=== PATIENT | female | born 2000 | race Caucasian/White ===

== ENCOUNTER 2023-05-07 01:04 | Emergency (ER) | payer OTHER ==
[~2023-05-07] VITALS: Ht 157.5 cm; Wt 59.0 kg
[~2023-05-07 01:04] MED LIST: ALBU90OI INH; AMOX50SU; CEPH250SUA PO; HYDHCL25 PO; PROM6.25SY PO
[2023-05-07] MEDS ORDERED: SERT50 PO (02:12)
[2023-05-07] MEDS ORDERED: TRAZ50 PO (02:12)
[2023-05-07] MEDS ORDERED: MELO7.5 PO (02:14)
[2023-05-07] MEDS ORDERED: CLON.5 PO (02:14)
[2023-05-07] MEDS ORDERED: PRAZ1 PO (02:15)
[2023-05-07] MEDS ORDERED: AMPDEX5 PO (02:16)
[2023-05-07 02:17] LABS: BASOPHILS ABSOLUTE AUTO 0.06 K/mm3 (0.00-0.23); BASOPHILS PERCENT AUTO 1 % (0-2); EOSINOPHILS ABSOLUTE AUTO 0.03 K/mm3 (0.00-0.68); EOSINOPHILS PERCENT AUTO 0 % (0-6); Hematocrit 47.2 % (33.0-51.0); Hemoglobin 16.6 g/dL (11.5-16.0); IMMATURE GRAN ABSOLUTE AUTO 0.02 K/mm3 (0.00-0.10); IMMATURE GRAN PERCENT AUTO 0 % (0-1); LYMPHOCYTES ABSOLUTE AUTO 2.21 K/mm3 (0.84-5.20); LYMPHOCYTES PERCENT AUTO 23 % (21-46); MONOCYTES ABSOLUTE AUTO 0.36 K/mm3 (0.16-1.47); MONOCYTES PERCENT AUTO 4 % (4-13); Mean Corpuscular HGB 31.1 pg (26.0-34.0); Mean Corpuscular HGB Conc 35.2 g/dL (31.5-36.5); Mean Corpuscular Volume 88 fL (80-100); Mean Platelet Volume 8.5 fL (9.1-12.4); NEUTROPHILS ABSOLUTE AUTO 6.95 K/mm3 (1.96-9.15); NEUTROPHILS PERCENT AUTO 72 % (41-73); Platelet Count 394 K/mm3 (150-400); RDW Coefficient Variation 12.2 % (11.7-14.2); Red Blood Cell Count 5.34 M/mm3 (3.80-5.20); White Blood Cell Count 9.63 K/mm3 (4.00-11.30)
[2023-05-07 02:44] LABS: Ethanol (Alcohol), Blood, Med 169 mg/dL; Salicylate <1.7 mg/dL (2.8-20.0); Thyroid Stimulating Hormone 0.744 uIU/mL (0.360-4.800)
[2023-05-07 02:56] LABS: Acetaminophen, Random <2.0 ug/mL (10.0-30.0); Alanine Aminotransfer (ALT/SGP 14 U/L (12-78); Albumin, Blood 4.7 g/dL (3.4-5.0); Albumin/Globulin Ratio 1.2 (0.8-1.8); Alk Phos 83 U/L (50-136); Anion Gap 5 mmol/L (6-16); Aspartate Aminotrans (AST/SGOT 16 U/L (12-37); Bilirubin, Total 0.4 mg/dL (0.1-1.0); Blood Urea Nitrogen 7 mg/dL (8-24); Bun/Creatinine Ratio 9.8 (12.0-20.0); CO2, Blood 28 mmol/L (21-32); Calcium, Blood 9.1 mg/dL (8.5-10.1); Chloride, Blood 108 mmol/L (98-108); Creatinine, Blood 0.71 mg/dL (0.40-1.00); Glomerular Filtration Rate 122 (60-); Glucose, Blood 110 mg/dL (70-99); Potassium, Blood 3.8 mmol/L (3.5-5.5); Sodium, Blood 141 mmol/L (136-145); Total Protein, Blood 8.7 g/dL (6.4-8.2)
[2023-05-07] MEDS ORDERED: NS 1,000 ML IV SCH (03:30)
[2023-05-07 07:00] VITALS: BP 115/71
[2023-05-07 08:59] LABS: Source, Urine Clean Catch
[2023-05-07 09:04] LABS: Appearance, Urine Hazy (Clear); Bilirubin, Urine Neg (Neg); Blood, Urine Neg (Neg); Color, Urine Yellow (P-Yellow); Glucose Qualitative, Urine Neg (Neg); Ketones, Urine Neg (Neg); Leukocyte Esterase, Urine Neg (Neg); Nitrite, Urine Neg (Neg); Protein, Urine Neg (Neg); Specific Gravity, Urine 1.025 (1.003-1.022); Urobilinogen, Urine NORM (Normal)
[2023-05-07 09:11] LABS: Bacteria Rare /hpf; Mucus Light (0-Heavy); Squamous Epithelial Cells Few /hpf (Few); White Blood Cells, Urine 0-2 /hpf (0-5)
[2023-05-07 09:29] LABS: U Amphetamine Screen DETECTED; U Barbituate Screen Not Detected; U Benzodiazapine Screen Not Detected; U Buprenorphine Screen Not Detected; U Cannabinoids Screen Not Detected; U Cocaine Screen Not Detected; U Methadone Screen Not Detected; U Methamphetamine Screen Not Detected; U Opiates Screen Not Detected; U Oxycodone Screen Not Detected; U Phencyclidine Screen Not Detected
== END 2023-05-07 10:22 | disposition home or self-care (01) ==
LOC: ER 01:04
PROVIDERS: Emergency Medicine
DX: T14.91XA Suicide attempt, initial encounter (principal); F32.A Depression, unspecified; E86.0 Dehydration; Z04.71 Encounter for examination and observation following alleged adult physical abuse; F10.129 Alcohol abuse with intoxication, unspecified; Y90.6 Blood alcohol level of 120-199 mg/100 ml; R68.84 Jaw pain; Z91.51 Personal history of suicidal behavior
CPT/HCPCS: 36415; 70486; 80053; 81001; 84443; 84703; 85025; 93005; 93010; 96360; 99285-25; G0480; J7030

== ENCOUNTER 2023-12-15 19:18 | Emergency (ER) | payer OTHER ==
[~2023-12-15] VITALS: Ht 157.5 cm; Wt 63.5 kg
[~2023-12-15 19:18] MED LIST changes: +AMPDEX5 PO; +CLON.5 PO; +IBUP600 PO; +MELO7.5 PO; +PRAZ1 PO; +SERT50 PO; +TRAZ50 PO
[2023-12-15 19:37] VITALS: BP 111/97
== END 2023-12-15 20:50 | disposition home or self-care (01) ==
LOC: ER 19:18
DX: R10.32 Left lower quadrant pain (principal); Z79.899 Other long term (current) drug therapy
CPT/HCPCS: 76830; 76856; 99284-25

== ENCOUNTER 2023-12-18 16:47 | Emergency (ER) | payer OTHER ==
[~2023-12-18] VITALS: Ht 162.6 cm; Wt 68.0 kg
[2023-12-18 17:31] LABS: BASOPHILS ABSOLUTE AUTO 0.06 K/mm3 (0.00-0.23); BASOPHILS PERCENT AUTO 1 % (0-2); EOSINOPHILS ABSOLUTE AUTO 0.12 K/mm3 (0.00-0.68); EOSINOPHILS PERCENT AUTO 2 % (0-6); Hematocrit 40.2 % (33.0-51.0); Hemoglobin 13.9 g/dL (11.5-16.0); IMMATURE GRAN ABSOLUTE AUTO 0.02 K/mm3 (0.00-0.10); IMMATURE GRAN PERCENT AUTO 0 % (0-1); LYMPHOCYTES ABSOLUTE AUTO 1.81 K/mm3 (0.84-5.20); LYMPHOCYTES PERCENT AUTO 28 % (21-46); MONOCYTES PERCENT AUTO 8 % (4-13); Mean Corpuscular HGB 31.5 pg (26.0-34.0); Mean Corpuscular HGB Conc 34.6 g/dL (31.5-36.5); Mean Corpuscular Volume 91 fL (80-100); Mean Platelet Volume 8.7 fL (9.1-12.4); NEUTROPHILS ABSOLUTE AUTO 3.99 K/mm3 (1.96-9.15); NEUTROPHILS PERCENT AUTO 62 % (41-73); Platelet Count 315 K/mm3 (150-400); RDW Standard Deviation 40.1 fL (35.1-46.3); Red Blood Cell Count 4.41 M/mm3 (3.80-5.20)
[2023-12-18 17:54] LABS: Albumin, Blood 3.8 g/dL (3.4-5.0); Albumin/Globulin Ratio 1.2 (0.8-1.8); Bilirubin, Total 1.1 mg/dL (0.1-1.0); Bun/Creatinine Ratio 11.8 (12.0-20.0); Creatinine, Blood 1.02 mg/dL (0.40-1.00); Globulin, Blood 3.2 g/dL (2.2-4.0); Potassium, Blood 4.2 mmol/L (3.5-5.5)
[2023-12-18 20:21] LABS: Source, Urine Clean Catch
[2023-12-18 20:23] LABS: Appearance, Urine Hazy (Clear); Bilirubin, Urine Neg (Neg); Blood, Urine Neg (Neg); Color, Urine Yellow (P-Yellow); Glucose Qualitative, Urine Neg (Neg); Ketones, Urine Neg (Neg); Leukocyte Esterase, Urine Neg (Neg); Nitrite, Urine Neg (Neg); Protein, Urine 1+ (Neg); Specific Gravity, Urine 1.025 (1.003-1.022); Urobilinogen, Urine 3+ (Normal)
[2023-12-18 20:34] LABS: Mucus Light (0-Heavy)
[2023-12-18 20:35] LABS: Amorphous Mod (0-Heavy); Bacteria Few /hpf; Squamous Epithelial Cells Mod /hpf (Few)
[2023-12-18 20:36] LABS: Red Blood Cells, Urine Not Seen /hpf (0-2); White Blood Cells, Urine 0-2 /hpf (0-5)
[2023-12-18] MEDS ORDERED: Ondansetron HCl 2 MG / ML 2ML Vial IV ONE (21:35)
[2023-12-18] MEDS ORDERED: Ketorolac Tromethamine 15mg Vial IV ONE (21:35)
[2023-12-18] MEDS ORDERED: Lactated Ringer's 1,000 ML IV ONE (21:35)
[2023-12-18 22:00] VITALS: BP 123/75
== END 2023-12-18 23:21 | disposition home or self-care (01) ==
LOC: ER 16:47
PROVIDERS: Physician Assistant
DX: R10.32 Left lower quadrant pain (principal); R11.2 Nausea with vomiting, unspecified; Z79.899 Other long term (current) drug therapy
CPT/HCPCS: 74177; 80053; 81001; 81025; 83690; 85025; 96374-59; 96375; 99284-25; J1885; J2405; J7120; Q9967

== ENCOUNTER 2024-05-14 21:24 | Emergency (ER) | payer OTHER ==
[~2024-05-14] VITALS: Ht 157.5 cm; Wt 63.5 kg
[2024-05-14 22:02] VITALS: BP 127/97
[2024-05-14 22:32] LABS: BASOPHILS ABSOLUTE AUTO 0.06 K/mm3 (0.00-0.23); BASOPHILS PERCENT AUTO 1 % (0-2); EOSINOPHILS ABSOLUTE AUTO 0.11 K/mm3 (0.00-0.68); EOSINOPHILS PERCENT AUTO 1 % (0-6); Hematocrit 41.5 % (33.0-51.0); Hemoglobin 14.8 g/dL (11.5-16.0); IMMATURE GRAN ABSOLUTE AUTO 0.03 K/mm3 (0.00-0.10); IMMATURE GRAN PERCENT AUTO 0 % (0-1); LYMPHOCYTES ABSOLUTE AUTO 2.69 K/mm3 (0.84-5.20); LYMPHOCYTES PERCENT AUTO 30 % (21-46); MONOCYTES ABSOLUTE AUTO 0.62 K/mm3 (0.16-1.47); MONOCYTES PERCENT AUTO 7 % (4-13); Mean Corpuscular HGB 32.3 pg (26.0-34.0); Mean Corpuscular HGB Conc 35.7 g/dL (31.5-36.5); Mean Corpuscular Volume 91 fL (80-100); Mean Platelet Volume 8.7 fL (9.1-12.4); NEUTROPHILS ABSOLUTE AUTO 5.47 K/mm3 (1.96-9.15); NEUTROPHILS PERCENT AUTO 61 % (41-73); Platelet Count 370 K/mm3 (150-400); RDW Coefficient Variation 12.2 % (11.7-14.2); Red Blood Cell Count 4.58 M/mm3 (3.80-5.20); White Blood Cell Count 8.98 K/mm3 (4.00-11.30)
[2024-05-14 22:58] LABS: Alanine Aminotransfer (ALT/SGP 19 U/L (12-78); Albumin, Blood 4.4 g/dL (3.4-5.0); Albumin/Globulin Ratio 1.4 (0.8-1.8); Alk Phos 76 U/L (50-136); Anion Gap 8 mmol/L (3-11); Aspartate Aminotrans (AST/SGOT 14 U/L (12-37); Beta HCG, Quantitative, Serum <1 mIU/mL (0-3); Bilirubin, Total 1.1 mg/dL (0.1-1.0); Blood Urea Nitrogen 9 mg/dL (8-24); Bun/Creatinine Ratio 9.5 (12.0-20.0); CO2, Blood 28 mmol/L (21-32); Calcium, Blood 9.3 mg/dL (8.5-10.1); Chloride, Blood 105 mmol/L (98-108); Creatinine, Blood 0.94 mg/dL (0.40-1.00); Globulin, Blood 3.2 g/dL (2.2-4.0); Glomerular Filtration Rate 86 (60-); Glucose, Blood 106 mg/dL (70-99); Potassium, Blood 3.8 mmol/L (3.5-5.5); Sodium, Blood 137 mmol/L (136-145); Total Protein, Blood 7.6 g/dL (6.4-8.2)
[2024-05-14] MEDS ORDERED: NS 1,000 ML IV SCH (23:30)
[2024-05-14] MEDS ORDERED: Ketorolac Tromethamine 30mg Vial IV ONE (23:30)
[2024-05-15] MEDS ORDERED: IBU600 MG PO (01:58)
== END 2024-05-15 02:08 | disposition home or self-care (01) ==
LOC: ER 21:24
PROVIDERS: Student in an Organized Health Care Education/Training Program
DX: N83.202 Unspecified ovarian cyst, left side (principal); F43.10 Post-traumatic stress disorder, unspecified; Z79.899 Other long term (current) drug therapy; Z79.1 Long term (current) use of non-steroidal anti-inflammatories (NSAID)
CPT/HCPCS: 74177; 80053; 83690; 84702; 85025; 96361; 96374; 99284-25; J1885; J7030; Q9967

== ENCOUNTER 2024-09-07 22:51 | Emergency (ER) | payer OTHER ==
[~2024-09-07] VITALS: Ht 157.5 cm; Wt 54.4 kg
[~2024-09-07 22:51] MED LIST changes: +AMOCLA875 PO; +IBU600 MG PO
[2024-09-08] MEDS ORDERED: Ondansetron HCl 2 MG / ML 2ML Vial IV ONE (00:55)
[2024-09-08] MEDS ORDERED: NS 1,000 ML IV SCH (00:55)
[2024-09-08 01:34] LABS: BASOPHILS ABSOLUTE AUTO 0.07 K/mm3 (0.00-0.23); BASOPHILS PERCENT AUTO 1 % (0-2); EOSINOPHILS ABSOLUTE AUTO 0.11 K/mm3 (0.00-0.68); EOSINOPHILS PERCENT AUTO 1 % (0-6); Hematocrit 42.4 % (33.0-51.0); Hemoglobin 14.6 g/dL (11.5-16.0); IMMATURE GRAN ABSOLUTE AUTO 0.01 K/mm3 (0.00-0.10); IMMATURE GRAN PERCENT AUTO 0 % (0-1); LYMPHOCYTES ABSOLUTE AUTO 2.47 K/mm3 (0.84-5.20); LYMPHOCYTES PERCENT AUTO 27 % (21-46); MONOCYTES ABSOLUTE AUTO 0.68 K/mm3 (0.16-1.47); MONOCYTES PERCENT AUTO 8 % (4-13); Mean Corpuscular HGB Conc 34.4 g/dL (31.5-36.5); Mean Corpuscular Volume 91 fL (80-100); NEUTROPHILS ABSOLUTE AUTO 5.76 K/mm3 (1.96-9.15); NEUTROPHILS PERCENT AUTO 63 % (41-73); NRBC ABSOLUTE 0.00 K/mm3 (0.00-0.02); NRBC Auto 0.0 /100 WBC (0.0-0.2); Platelet Count 374 K/mm3 (150-400); RDW Coefficient Variation 12.5 % (11.7-14.2); RDW Standard Deviation 41.3 fL (35.1-46.3)
[2024-09-08 01:52] LABS: Alanine Aminotransfer (ALT/SGP 19.0 U/L (12-78); Albumin, Blood 4.3 g/dL (3.4-5.0); Albumin/Globulin Ratio 1.2 (0.8-1.8); Anion Gap 10.0 mmol/L (3-11); Aspartate Aminotrans (AST/SGOT 11.0 U/L (12-37); Bilirubin, Total 0.8 mg/dL (0.1-1.0); Blood Urea Nitrogen 11.0 mg/dL (8-24); CO2, Blood 26.0 mmol/L (21-32); Calcium, Blood 9.0 mg/dL (8.5-10.1); Chloride, Blood 105.0 mmol/L (98-108); Creatinine, Blood 0.94 mg/dL (0.40-1.00); Globulin, Blood 3.6 g/dL (2.2-4.0); Glucose, Blood 89.0 mg/dL (70-99); Potassium, Blood 3.6 mmol/L (3.5-5.5); Sodium, Blood 137.0 mmol/L (136-145); Total Protein, Blood 7.9 g/dL (6.4-8.2)
[2024-09-08 03:45] VITALS: BP 123/75
[2024-09-08] MEDS ORDERED: SULTRIDS PO (03:56)
== END 2024-09-08 04:14 | disposition home or self-care (01) ==
LOC: ER 22:51
PROVIDERS: Emergency Medicine
DX: S51.851D Open bite of right forearm, subsequent encounter (principal); Z79.2 Long term (current) use of antibiotics; Z79.899 Other long term (current) drug therapy; F43.10 Post-traumatic stress disorder, unspecified; W54.0XXD Bitten by dog, subsequent encounter
CPT/HCPCS: 10160; 73201; 80053; 84703; 85025; 87070; 87075; 87205; 96374-59; 99283-25; J2405; J7030; Q9967

== ENCOUNTER 2025-02-16 00:15 | Emergency (ER) | payer OTHER ==
[~2025-02-16] VITALS: Ht 157.5 cm; Wt 63.5 kg
[~2025-02-16 00:15] MED LIST changes: +SULTRIDS PO
[2025-02-16 00:35] VITALS: BP 128/74
[2025-02-16] MEDS ORDERED: AMPDEX5 PO (00:39)
[2025-02-16] MEDS ORDERED: CEPH500 PO (01:45)
== END 2025-02-16 02:50 | disposition home or self-care (01) ==
LOC: ER 00:15
DX: L03.115 Cellulitis of right lower limb (principal); S81.831A Puncture wound without foreign body, right lower leg, initial encounter; D68.51 Activated protein C resistance; Z79.899 Other long term (current) drug therapy; V00.848A Other accident with standing micro-mobility pedestrian conveyance, initial encounter
CPT/HCPCS: 93971; 99283-25; A9270